=== PATIENT | female | born 1980 | race Hispanic/Latino ===

== ENCOUNTER 2024-08-28 12:19 | Emergency (ER) | payer BC ==
[~2024-08-28] VITALS: Ht 157.5 cm; Wt 65.3 kg
[2024-08-28 13:26] VITALS: TEMP 98.8
[2024-08-28 13:50] VITALS: BP 126/75; PULSE 87; RESP 18; O2SAT 98
--- NOTE | 2024-08-28 14:11 | HMCIMG ---
FOOT COMP 3+VWS RT REASON: pain TECHNIQUE: 3 views were obtained. FINDINGS: There is a fragment avulsed from the proximal base of the fifth metatarsal. Fragment is from the remaining bone by 6 mm. Bones of the foot appear otherwise intact. Joint spaces appear preserved soft tissues appear unremarkable. IMPRESSION: 1. Distracted fracture of the proximal base of the fifth metatarsal.
--- NOTE | 2024-08-28 14:23 | ERN ---
General Chief Complaint: FOOT INJURY/PAIN Stated Complaint: RIGHT FOOT INJURY YESTERDAY Time Seen by MD: 12:21 Time Seen by Midlevel: 12:21 Source: patient History of Present Illness Initial Comments Patient is a 44-year-old female presenting to the emergency department with pain to the right foot. The patient states she was at work when she accidentally stepped wrong. She was seen at a local urgent care yesterday where she was diagnosed with a fracture of the right foot. She was placed on a boot and discharged home with a prescription for Motrin. She was concerned because she did not receive an urgent orthopedic consultation and is requesting one at this time. Past Medical History Past Medical History: Diabetes-Type II, Other Past Surgical History: Other, Surgical History Other: LIPO ROS Dictation CONSTITUTIONAL: Negative except for HPI HEAD/FACE: Negative except for HPI EENT: Negative except for HPI RESPIRATORY: Negative except for HPI GASTROINTESTINAL/ABDOMINAL: Negative except for HPI GENITOURINARY: Negative except for HPI MUSCULOSKELETAL: Negative except for HPI INTEGUMENTARY: Negative except for HPI NEUROLOGICAL/PSYCH: Negative except for HPI HEMATOLOGIC/LYMPHATIC: Negative except for HPI All Systems Negative, Except as noted above. 13 point review of systems assessed and all negative except for above. Physical Exam Physical Exam Dictation Vital Signs reviewed General Appearance: Alert, oriented x 3, no acute distress, well developed, nourished. Head and Face: non-traumatic. Eyes: PERRL, pink conjunctivas, eyelid no trauma, anterior chamber with arcus senilis. Ears: Pinnas intact and no signs of trauma or erythema ear canals clear and no discharge TM no erythema Nose: No discharge, no bleeding. Oropharynx: Mouth normal, tongue pink, pharynx clear,no erythema, tonsils no exudates, no abscesses noted, mucous membrane moist Neck: Supple, non-tender, no thyromegaly, no masses, no JVD, no bruits Breast:Deferred Chest:No tenderness, no crepitus, no paradoxical movement, no retractions Lungs:Clear, well-ventilated, symmetric, no rales, no wheezing, no rhonchi, no stridor, good breath sounds bilaterally Heart: Regular rate, regular rhythm, no murmur, no gallops Vascular: no peripheral edema, Abdomen: Soft, positive bowel sounds, nondistended, no guarding, nontender, no rebound, no masses no hepatomegaly, no splenomegaly, no Arguello's sign, no hernias. Rectal: Deferred Genital: Deferred Neurological: Normal speech, motor function intact, sensory function intact Musculoskeletal: Neck nontender, full range of motion, back nontender, full range of motion, Extremities: Walking boot in place Skin: Color pink, dry, no turgor, no rash, no lacerations, no abrasions, no contusions. Lymphatic: Deferred MDM MDM: Patient is a 44-year-old female presenting to the emergency department with pain to the right foot. The patient states she was at work when she accidentally stepped wrong. She was seen at a local urgent care yesterday where she was diagnosed with a fracture of the right foot. She was placed on a boot and discharged home with a prescription for Motrin. She was concerned because she did not receive an urgent orthopedic consultation and is requesting one at this time. On arrival patient is visibly upset. On examination she was in a wheelchair in no acute distress. There is a walking boot place. X-ray of the right foot reveals a 5th metatarsal fracture. This was discussed with the patient and she understands her diagnosis. She was asking if she was going to receive an orthopedic consultation while in the emergency department. I discussed that she will need to follow up outpatient for this. I offered to give her a prescription for something stronger than Motrin but she refused. I also asked if she wanted one week off of work and she replied with "whatever" and continued to ignore the remainder of my questions. The patient will be discharged home with outpatient follow up Differential diagnosis: Fracture, contusion, dislocation There are no social concerns with this patient. Prescription drug management Prescriptions will include: None Medical management and examination interpretation discussions were had by me with other qualified healthcare professionals as indicated for the patient's care. ED Course Orders Procedure Category Date Status Time Foot Comp 3+Vws Rt RAD 08/28/24 Resulted 12:45 *Nursing CPOE 08/28/24 Transmitted Communication: 14:22 Vital Signs Date Time Temp Pulse Resp B/P (MAP) Pulse Ox O2 Delivery O2 Flow Rate FiO2 08/28/24 13:26 98.8 66 20 128/53 98 Room Air 0 [facility] [address] [place] [id number] IMAGING REPORT Signed PATIENT: ALEXANDRIA GALICIA MR#: [id number] : 1980 SEX: F AGE: 44 LOCATION: [facility] ORDER [id number] STATUS: REG ER REPORT#: [id number] SERVICE 1245 REASON: pain ORDERING PHYSICIAN: KODAK GRACIA PROCEDURE: FT 3VW RT - FOOT COMP 3+VWS RT FOOT COMP 3+VWS RT REASON: pain TECHNIQUE: 3 views were obtained. FINDINGS: There is a fragment avulsed from the proximal base of the fifth metatarsal. Fragment is from the remaining bone by 6 mm. Bones of the foot appear otherwise intact. Joint spaces appear preserved soft tissues appear unremarkable. IMPRESSION: 1. Distracted fracture of the proximal base of the fifth metatarsal. DICTATED BY: COLLEEN FRANCOIS MD DATE: 08/28/24 1406 ELECTRONICALLY SIGNED BY: COLLEEN FRANCOIS MD DATE: 08/28/24 1411 DX & DISP Disposition: Discharge Departure Impression: Primary Impression: Fracture of fifth metatarsal bone of right foot Condition: Stable Additional Instructions: Your right foot x-ray reveals a fracture of the 5th metatarsal bone of your right foot. Please continue to use the boot that was given to you yesterday. I have given you a follow up with an advertising specialist you can see them o utpatient. Referrals: SELF,REFERRAL (PCP) JIMBO DAILY MD Time of Disposition: 14:23 I have reviewed the case, and I agree with, Diagnosis and Plan I performed the substantive portion of the visit. I have reviewed and personally made and approve the management plan that is documented in the note by myself or the TODD. I acknowledge for responsibility for the patient's management plan. KODAK GRACIA Aug 28, 2024 14:23
== END 2024-08-28 14:33 | disposition home or self-care (01) ==
LOC: EDH 12:19
DX: S92.351A Displaced fracture of fifth metatarsal bone, right foot, initial encounter for closed fracture (principal); E11.9 Type 2 diabetes mellitus without complications; Z98.890 Other specified postprocedural states; X58.XXXA Exposure to other specified factors, initial encounter; Y93.01 Activity, walking, marching and hiking; Y92.89 Other specified places as the place of occurrence of the external cause; Y99.8 Other external cause status
CPT/HCPCS: 73630; 99283

== ENCOUNTER 2024-09-07 07:51 | Day surgery (SDC) | payer BC ==
[2024-09-04 09:53] VITALS: BP 168/86; PULSE 59; RESP 18; TEMP 97.5
[2024-09-04 09:55] LABS: BASOPHILS # (AUTO) 0.05 K/uL (0.00-0.20); BASOPHILS % (AUTO) 0.5 % (0.0-5.0); EOSINOPHILS # (AUTO) 0.17 K/uL (0.00-0.70); EOSINOPHILS % (AUTO) 1.8 % (0.0-8.0); HEMATOCRIT 41.5 % (36-48); IMMATURE GRANULOCYTE ABSOLUTE 0.05 K/uL (0-1); LYMPHOCYTES # (AUTO) 2.5 K/uL (1.0-4.8); MEAN CORPUSCULAR HEMOGLOBIN 29.1 pg (27.0-33.0); MEAN CORPUSCULAR VOLUME 90.8 fL (79-99); MONOCYTES # (AUTO) 0.6 K/uL (0.1-1.0); MONOCYTES % (AUTO) 6.4 % (3.0-13.0); NEUTROPHILS # (AUTO) 5.9 K/uL (1.8-7.7); NEUTROPHILS % (AUTO) 63.8 % (40.0-77.0); PLATELET COUNT (AUTO) 345 K/uL (130-400); RED BLOOD CELL COUNT(AUTO) 4.57 MIL/uL (4.00-5.50); RED CELL DISTRIBUTION WIDTH 13.1 % (11.0-15.5); WHITE BLOOD COUNT (AUTO) 9.2 K/uL (4.8-10.8)
[2024-09-04 10:07] LABS: INR <= 0.93 (0.85-1.15); PROTHROMBIN TIME 10.3 SEC (9.6-11.6)
[2024-09-04 10:10] LABS: ALBUMIN 3.7 g/dL (3.5-5.0); CREATININE 0.5 mg/dL (0.5-1.0); POTASSIUM 3.9 mmol/L (3.5-5.1)
[2024-09-07] VITALS (14 sets, daily range): BP systolic 120–146; BP diastolic 57–78; PULSE 51–65; RESP 13–21; TEMP 97.3–98.3
[~2024-09-07] VITALS: Ht 157.5 cm; Wt 109.2 kg
[~2024-09-07 07:51] MED LIST: TIRZ10PE SQ
[2024-09-07] MEDS ORDERED: acetaMINOPHEN 100 ML ONE (08:54)
[2024-09-07] MEDS ORDERED: FAMOTIDINE 20MG VIAL IV ONE (08:54)
[2024-09-07] MEDS ORDERED: ketaMINE 50MG/ML SYRINGE 50 MG/ML DISP.SYRIN ONE (08:56)
[2024-09-07] MEDS: 0.9%NACL 1000ML 1,000 ML IV ONE (08:56)
[2024-09-07] MEDS ORDERED: FENTanyl CITRate PF 50 MCG/1 ML 2ML VIAL ONE (08:57)
[2024-09-07] MEDS ORDERED: rocuRONium bROMide 10MG/1ML 5ML VL ONE (08:57)
[2024-09-07] MEDS ORDERED: LIDOCAINE PF 100MG/5ML (2%) SYRINGE 5ML ONE (08:57)
[2024-09-07] MEDS ORDERED: proPOFol 10 MG/ML 20ML VIAL IV ONE (08:57)
[2024-09-07] MEDS ORDERED: AUD IH (09:14)
[2024-09-07] MEDS: ceFAZolin SODIUM 2 GM VIAL ONE (10:47)
[2024-09-07] MEDS ORDERED: ACET-2079 PO (12:05)
[2024-09-07] MEDS ORDERED: GLYCOPYRROLATE 0.2 MG/ML 5 ML VIAL ONE ×3 (12:11→12:58)
[2024-09-07] MEDS ORDERED: dexaMETHasone SOD PHOSPHATE 10MG/ML 1ML VIAL ONE (12:11)
[2024-09-07] MEDS ORDERED: ondanSETRON 4MG INJ ONE (12:11)
[2024-09-07] MEDS: ceFAZolin SODIUM 2 GM VIAL IVPB ONE (12:12)
[2024-09-07] MEDS ORDERED: BUPIvacaine/PF 0.5% 10ML VIAL ONE (12:13)
[2024-09-07] MEDS ORDERED: NEOSTIGMINE METHYLSULFATE 1MG/ML IV ONE (13:21)
--- NOTE | 2024-09-07 13:58 | HMCIMG ---
Fluoroscopic guidance History: ORIF RT 5th metatarsal Fluoroscopic guidance provided. Procedure by ordering physician in operating room suite with fluoroscopic guidance. Several spot images were obtained. Impression: Fluoroscopic guidance.
[2024-09-07] MEDS: ketOROlac 30MG VIAL (30MG/ML) ONE (14:09)
[2024-09-07] MEDS: MEPERIDINE-PF 50 MG/ML SYG ONE (14:15)
--- NOTE | 2024-09-07 15:08 | OP ---
Operative Note: DATE OF PROCEDURE: 09/07/24 SURGEON: MICHELLE MONTALVO MD SECOND CLASS WELDER: Anabela Gallardo ANESTHESIA: General ANESTHESIOLOGIST/DIRECTOR PROCESS IMPROVEMENT: Farrah Salgado PREOPERATIVE DIAGNOSIS: Comminuted right 5th metatarsal base fracture POSTOPERATIVE DIAGNOSIS: Comminuted right 5th metatarsal base fracture PROCEDURE: Open reduction internal fixation right 5th metatarsal base fracture ESTIMATED BLOOD LOSS: 2 cc IMPLANTS: Arthrex 5th metatarsal hook plate and 2.4 mm screws x 2 INDICATIONS: 44-year-old female status post right ankle twisting type injury when a dog knocked her down a proximally two weeks ago. Patient presented to our clinic with x-rays showing a comminuted 5th metatarsal base fracture with significant proximal migration of the proximal fracture fragment. We reviewed the x-rays and discussed the findings and clinic. After discussion of the risks, benefits, and alternatives, the patient voluntarily agreed to undergo the aforementioned procedure. DESCRIPTION OF PROCEDURE: Patient was properly identified in the preoperative holding area. Surgical site marking was verified and surgery consent reviewed. The patient was then taken to the operating room and placed in supine position on the OR table. After induction of general anesthesia, preoperative antibiotics were given, all bony prominences were well-padded, and a well padded tourniquet was applied but not inflated at this time. The right lower extremity was then prepped and draped in usual sterile fashion. Surgical timeout was done verifying correct surgery, side, site, and location to be performed. We then began the procedure by exsanguinating the limb with an Esmarch and inflating our tourniquet to 300 mm Hg. We then used a 15 blade to make an 10 cm long incision over the lateral border of the 5th metatarsal near the base. We dissected through subcutaneous tissues using Metzenbaums and placed our retractors to assist with visualizing the fracture site. A [place] elevator was used to help elevate the periosteum adjacent to the fracture site on the shaft. We then used a bone pick and the [place] to help manipulate the remaining two fragments and identify how they should be oriented for reduction. Interposed soft tissue was debrided using a small rongeur. We then tried to manipulate further the most proximal fragment and found that due to the size there were concerns for causing further comminution. We then obtained a #1 Vicryl and passed it through the peroneal tendon at its insertion on this fragment and used this to apply tension on this fracture fragment. We then reduced the smaller intercalary fragment and used the Vicryl suture to pull this fragment into the appropriate position. Manipulating it with a dental pick we are able to get a good reduction all of the lateral side. We then placed a [id number] reduction clamp holding this reduced. We checked under fluoroscopy that our fracture appeared reduced. We then selected the Arthrex standard hook plate and positioned this was appropriate and under fluoroscopy. It was impacted into position with the teeth noting to grab the most proximal fracture fragment. We then placed two screws distally through the plate into the metatarsal shaft. Additionally we passed the Vicryl suture through the plate and tied this distally tensioning the fracture fragment. We then removed our [id number] clamp and obtained our final AP oblique, and lateral fluoroscopic views. The wound was thoroughly irrigated out with normal saline. 2-0 Vicryl was used to close subcutaneous tissue with interrupted 3-0 nylon horizontal mattress sutures for the skin. Sterile soft dressing was applied using Xeroform 4x4s ABD and cast padding. A posterior splint with a stirrup was then placed. Our tourniquet was then deflated. The patient was awakened from anesthesia and taken the recovery room in stable condition MICHELLE MONTALVO MD Sep 07, 2024 15:07
== END 2024-09-07 15:30 | disposition home or self-care (01) ==
LOC: DAH 07:51
PROVIDERS: ATTEND Student in an Organized Health Care Education/Training Program
DX: S92.351A Displaced fracture of fifth metatarsal bone, right foot, initial encounter for closed fracture (principal); M79.671 Pain in right foot; E11.9 Type 2 diabetes mellitus without complications; E66.9 Obesity, unspecified; Z83.3 Family history of diabetes mellitus; Z68.41 Body mass index [BMI] 40.0-44.9, adult; Z98.890 Other specified postprocedural states; Z82.49 Family history of ischemic heart disease and other diseases of the circulatory system; Z79.899 Other long term (current) drug therapy; X50.1XXA Overexertion from prolonged static or awkward postures, initial encounter; Y92.098 Other place in other non-institutional residence as the place of occurrence of the external cause; Y93.89 Activity, other specified; Y99.8 Other external cause status
CPT/HCPCS: 82040; 80048; 84703 ×2; 85025; 85610; 85730; 84134; 86140; 36415 ×2; 87641; 28485; 82948; 73630; J1885; C1713; A4663; J7030 ×2; A4649 ×4; J3490 ×5; J3010; J1100; J0665 ×2; J2003; J2704; J2405; J2710; J2175; J0690 ×2; A6223; C1776; A4215; A4222; A4221; A4216; A6450; A4223 ×2